=== PATIENT | female | born 1980 | race Caucasian/White ===

== ENCOUNTER 2016-12-02 09:57 | Outpatient (CLI) | payer BC, OTHER ==
[2014-09-30 10:14] VITALS: BP 122/70
--- NOTE | 2016-12-03 08:34 | Diagnostic Imaging Report ---
[facility] [address] [facility] [address] [id number] Report Submission Date: Dec 02, 2016 10:52:59 AM CHEMISTRY MANAGER Patient Study Name: MARK AMBROCIO Date: Dec 02, 2016 10:35:36 AM CHEMISTRY MANAGER Modality Type: US Gender: F Description: US EXT NON VASC LIMITED : 80 Institution: [facility] Physician FREDI ANTONIO - OP Ultrasound of the left lower extremity CLINICAL HISTORY: Pain and bruising behind the left knee for 1 week. TECHNIQUE: Real-time sonography of the left lower extremity is performed in transverse and longitudinal views with imaging behind the left knee in the area of bruising. FINDINGS: There is no evident cystic or solid mass. The vascular structures appear unremarkable. IMPRESSION: No evident mass. Electronically signed on Dec 02, 2016 10:52:59 AM CHEMISTRY MANAGER by: Alex WILSON
== END 2016-12-02 10:00 ==
LOC: RAD 09:57
PROVIDERS: ATTEND Family Medicine
DX: M25.562 Pain in left knee (principal)
CPT/HCPCS: 76882